=== PATIENT | female | born 1980 | race Hispanic/Latino ===

== ENCOUNTER 2017-03-19 12:21 | Emergency (ER) | payer BC ==
[2017-03-19 12:34] VITALS: BP 122/83; PULSE 90; RESP 18; TEMP 98.6; O2SAT 97
--- NOTE | 2017-03-19 12:48 | C.PDOC ---
History Of Present Illness 36 year old female presents to the ED requesting alcohol detox. Patient admits her most recent drink was today at 0500. Patient admits to drinking around 1 pint of alcohol daily. Patient denies suicidal/homicidal ideation and has no other physical complaints at this time. Time Seen by Provider: 03/19/17 12:35 Chief Complaint (Nursing): Substance Abuse History Per: Patient History/Exam Limitations: intoxication Onset/Duration Of Symptoms: Hrs Current Symptoms Are (Timing): Still Present Suicide/Self Injury Attempted (Context): None Modifying Factor(s): Alcohol Associated Symptoms: denies: Suicidal Thoughts, Suicidal Plan Involuntary Hold By: None Recent travel outside of the [place]: No Additional History Per: Patient Past Medical History Reviewed: Historical Data, Nursing Documentation, Vital Signs Vital Signs: Last Vital Signs Temp 98.6 F 03/19/17 12:31 Pulse 90 03/19/17 12:31 Resp 18 03/19/17 12:31 BP 122/83 03/19/17 12:31 Pulse Ox 97 03/19/17 13:15 - Medical History PMH: No Chronic Diseases Surgical History: No Surg Hx Family History: States: Unknown Family Hx - Social History Hx Alcohol Use: Yes Hx Substance Use: Yes - Immunization History Hx Tetanus Toxoid Vaccination: No Hx Influenza Vaccination: No Hx Pneumococcal Vaccination: No Review Of Systems Psych: Positive for: Other (request for alcohol detox ). Negative for: Suicidal ideation Physical Exam - Physical Exam Appears: No Acute Distress Skin: Normal Color, Warm, Dry Head: Atraumatic, Normacephalic Eye(s): bilateral: Normal Inspection Oral Mucosa: Moist, Other (alcohol on breath ) Neck: Supple Chest: Symmetrical, No Deformity, No Tenderness Cardiovascular: Rhythm Regular, No Murmur Respiratory: Normal Breath Sounds, No Rales, No Rhonchi, No Wheezing Extremity: Normal ROM, Capillary Refill (less than 2 seconds ) Neurological/Psych: Oriented x3, Normal Speech, Normal Cognition Gait: Steady ED Course And Treatment O2 Sat by Pulse Oximetry: 97 (on RA) Pulse Ox Interpretation: Normal Progress Note: Patient is informed about the unavailability of detox beds at this time. Patient is given contact information to inquire about future availability of beds. Disposition Counseled Patient/Family Regarding: Need For Followup - Disposition Referrals: Alcoholics Anonymous [Outside] [facility] [Outside] [facility] [Outside] Disposition: HOME/ ROUTINE Disposition Time: 13:10 Condition: STABLE Instructions: Abuse of Alcohol (ED) Forms: [employer] [facility] ([place]) - Clinical Impression Clinical Impression: Alcohol abuse - PA / OFFICE SPECIALIST / Resident Statement MD/DO has reviewed & agrees with the documentation as recorded. - Scribe Statement The provider has reviewed the documentation as recorded by the Scribe (Karen Adams) All medical record entries made by the Scribe were at my direction and personally dictated by me. I have reviewed the chart and agree that the record accurately reflects my personal performance of the history, physical exam, medical decision making, and the department course for this patient. I have also personally directed, reviewed, and agree with the discharge instructions and disposition.
== END 2017-03-19 13:24 | disposition home or self-care (01) ==
LOC: C.ER 12:21
DX: F10.10 Alcohol abuse, uncomplicated (principal)